=== PATIENT | male | born 1985 | race American Indian/Alaskan Native ===

== ENCOUNTER 2021-10-27 23:00 | Emergency (ER) | payer SELFPAY ==
[2021-10-28] MEDS ORDERED: TETANUS,DIPH,PERTUSS(ACELL) VACCINE 0.5 ML SYRINGE IM ONE (06:22)
[2021-10-28] MEDS ORDERED: traMADol 50 MG TAB PO ONE (06:22)
[2021-10-28] MEDS ORDERED: AMOXICILLIN/K CLAV 875/125MG TAB PO ONE (06:22)
--- NOTE | 2021-10-28 06:37 | Emergency Department Report ---
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 States domestic dog puncturing the left lateral leg. Last tetanus shot unknown there is a minor puncture wound less than 1 inch. No active bleeding wound was irrigated with copious soap and water on scene covered with Band-Aid. - Related Data Previous Rx's Medication Instructions Recorded Last Taken Type Amoxicillin/K Clav Tab [Augmentin 1 tab PO BID 7 Days #14 tab 10/28/21 Unknown Rx 875 mg] Mupirocin [Bactroban 2% OINT] 1 applic TP BID 10 Days #1 tube 10/28/21 Unknown Rx traMADoL [Ultram] 50 mg PO Q6HR PRN #12 tablet 10/28/21 Unknown Rx Allergies Allergy/AdvReac Type Severity Reaction Status Date / Time No Known Allergies Allergy Verified 10/28/21 00:51 ED Review of Systems ROS: Stated complaint: DOG BITE,LEFT LEG Other details as noted in HPI Constitutional: denies: chills, fever Eyes: denies: eye pain, eye discharge, vision change ENT: denies: ear pain, throat pain Respiratory: denies: cough, shortness of breath, wheezing Cardiovascular: denies: chest pain, palpitations Endocrine: no symptoms reported Gastrointestinal: denies: abdominal pain, nausea, diarrhea Genitourinary: denies: urgency, dysuria Musculoskeletal: other (Left lateral tib-fib dog bite puncture wound) Skin: denies: rash, lesions Neurological: denies: headache, weakness, paresthesias, vertigo Psychiatric: denies: anxiety, depression Hematological/Lymphatic: denies: easy bleeding, easy bruising ED Past Medical Hx - Past Medical History Previous Medical History?: No - Surgical History Past Surgical History?: No - Social History Smoking Status: Unknown if ever smoked Substance Use Type: None - Medications Home Medications: Home Medications Medication Instructions Recorded Confirmed Last Taken Type Amoxicillin/K Clav Tab [Augmentin 1 tab PO BID 7 Days #14 tab 10/28/21 Unknown Rx 875 mg] Mupirocin [Bactroban 2% OINT] 1 applic TP BID 10 Days #1 tube 10/28/21 Unknown Rx traMADoL [Ultram] 50 mg PO Q6HR PRN #12 tablet 10/28/21 Unknown Rx ED Physical Exam - General Limitations: No Limitations General appearance: alert, in no apparent distress - Head Head exam: Present: normocephalic, normal inspection - Eye Eye exam: Present: EOMI Pupils: Present: normal accommodation - ENT ENT exam: Present: mucous membranes moist - Neck Neck exam: Present: normal inspection, full ROM. Absent: tenderness - Respiratory Respiratory exam: Present: normal lung sounds bilaterally. Absent: respiratory distress, wheezes - Cardiovascular Cardiovascular Exam: Present: regular rate, normal rhythm, normal heart sounds. Absent: systolic murmur, diastolic murmur, rubs, gallop - GI/Abdominal GI/Abdominal exam: Present: soft, normal bowel sounds. Absent: distended, tenderness - Rectal Rectal exam: Present: deferred - Extremities Exam Extremities exam: Present: normal inspection, full ROM, normal capillary refill. Absent: pedal edema - Expanded Lower Extremity Exam Left Lower Leg exam: Present: full ROM, tenderness, abrasion, laceration (Left lateral puncture wound less than 1 inch No active bleeding no much nerve muscle or tendon damage). Absent: swelling, ecchymosis, deformity, crepidus, erythema, palpable cord, Guerline's sign Ankle exam: Present: full ROM. Absent: tenderness Foot/Toe exam: Present: full ROM. Absent: tenderness Neuro vascular tendon exam: Absent: pulse deficit, motor deficit, sensory deficit, tendon deficit Gait: Positive: observed and normal - Back Exam Back exam: Present: normal inspection, full ROM. Absent: tenderness - Neurological Exam Neurological exam: Present: alert, oriented X3, CN II-XII intact, normal gait, reflexes normal. Absent: motor sensory deficit - Expanded Neurological Exam Expanded Patient oriented to: Present: person, place, time Speech: Present: fluid speech Motor strength exam: RUE: 5, LUE: 5, RLE: 5, LLE: 5 DTR: ankle (R): 1+, ankle (L): 1+ Best Eye Response ([place]): (4) open spontaneously Best Motor Response ([place]): (6) obeys commands Best Verbal Response ([place]): (5) oriented [place] Total: 15 - Psychiatric Psychiatric exam: Present: normal affect, normal mood - Skin Skin exam: Present: warm, dry, intact, normal color. Absent: rash ED Course Vital Signs 10/28/21 00:51 Temperature 98.9 F Pulse Rate 79 Respiratory 18 Rate Blood Pressure 127/73 O2 Sat by Pulse 99 Oximetry ED Medical Decision Making - Medical Decision Making Is a domestic dog bite, patient did call police animal control, plan DC to home with prescriptions including Augmentin, NSAIDs for pain, mupirocin ointment twice daily. Patient given tetanus shot on this visit. There is a superficial wound patient is ambulatory with steady gait distal pulses are intact there is no nerve muscle or tendon damage. Band-Aid is intact there is no active bleeding. Patient will follow-up with animal control for definitive direction reference rabies vaccinations again however this was a domestic animal and wound is superficial.. Critical care attestation.: If time is entered above; I have spent that time in minutes in the direct care of this critically ill patient, excluding procedure time. ED Disposition Clinical Impression: Dog bite of left lower leg Qualifiers: Encounter type: initial encounter Qualified Code(s): S81.852A - Open bite, left lower leg, initial encounter; W54.0XXA - Bitten by dog, initial encounter Disposition: HOME / SELF CARE / HOMELESS Is pt being admited?: No Does the pt Need Aspirin: No Condition: Stable Instructions: Animal Bite, Adult, Wound Care, Adult Additional Instructions: Take medications as prescribed, wash with soap and water daily, plan will [place] ointment twice daily, follow-up with your doctor in 2 to 3 days. Return to emergency should symptoms worsen. Prescriptions: Amoxicillin/K Clav Tab [Augmentin 875 mg] 1 tab PO BID 7 Days #14 tab Mupirocin [Bactroban 2% OINT] 1 applic TP BID 10 Days #1 tube traMADoL [Ultram] 50 mg PO Q6HR PRN #12 tablet PRN Reason: Pain Referrals: KP SINGH MD [Staff Physician] - 3-5 Days Forms: Work/School Release Form(ED) Time of Disposition: 06:43
[2021-10-28 06:52] VITALS: BP 132/76
== END 2021-10-28 06:52 | disposition home or self-care (01) ==
LOC: ED 23:00
DX: S81.852A Open bite, left lower leg, initial encounter (principal); W54.0XXA Bitten by dog, initial encounter; Y93.89 Activity, other specified; Y92.89 Other specified places as the place of occurrence of the external cause; Y99.8 Other external cause status
CPT/HCPCS: 90471; 90715; 99282